=== PATIENT | female | born 1990 | race Caucasian/White ===

== ENCOUNTER 2022-01-27 17:34 | Inpatient (IN) | payer BC ==
[~2022-01-27] VITALS: Ht 160 cm; Wt 87.3 kg
--- NOTE | 2022-01-27 15:45 | NUR ---
PT AMBULATORY ONTO UNIT. CAME IN BECAUSE BLOOD PRESSURES WERE 160/90S AT HOME. CHANGED INTO CLEAN GOWN. FHR MONITOR/TOCO APPLIED. VITAL SIGNS WNL AT THIS TIME. PT DENIES ANY CONTRACTIONS, DECREASED MOVMEMENT, VAGINAL BLEEDING, OR LEAKING OF FLUID. PT IS ORIENTED TO ROOM AND TOLD PLAN OF CARE. PT VERBALIZES UNDERSTANDING.
[2022-01-27 18:00] VITALS: BP 144/97; PULSE 90; TEMP 98.2
[2022-01-27 18:20] LABS: HEMOGLOBIN 11.9 g/dl (12.5-16.0); MEAN CELL VOLUME 85 fl (80.0-100.0); MEAN CORPUSCULAR HEMOGLOBIN 28 pg (27-31); MEAN CORPUSCULAR HGB CONC 33 g/dl (33.0-37.0); MEAN PLATELET VOLUME 11.4 fl (7.4-10.4); PLATELET COUNT 251 K/mm3 (130-400); RED BLOOD COUNT 4.24 M/mm3 (4.10-5.30); REDCELL DISTRIBUTION WIDTH-CV 13.4 % (11.5-14.5)
--- NOTE | 2022-01-27 18:25 | NUR ---
1825- THIS RN TO BEDSIDE TO INTRODUCE FOR SHIFT CHANGE. DISCUSSED PLAN OF CARE AND PATIENT VERBALIZED UNDERSTANDING. PER DOCTORS ORDERS WOULD LIKE TO GET SOME BLOOD PRESSURES IN DIFFERENT POSITIONS. HELPED PATIENT TO LEFT LATERAL POSITION AND CHANGED BP CUFF TO RIGHT ARM. NO SYMPTOMS WITH POSITION CHANGE AT THIS TIME. AND NO QUESTIONS. CALL LIGHT WITHIN REACH.
[2022-01-27 18:30] VITALS: BP 129/79; PULSE 85
[2022-01-27 18:36] LABS: CALCIUM 8.6 mg/dL (8.4-10.2); CREATININE, serum 0.65 mg/dL (0.57-1.11)
[2022-01-27 18:45] VITALS: BP 125/82; PULSE 78
== END 2022-01-27 18:50 | disposition home or self-care (01) | DRG 833 ==
LOC: LDR 17:34
PROVIDERS: Obstetrics & Gynecology; ADMIT Obstetrics & Gynecology
DX: O14.90 Unspecified pre-eclampsia, unspecified trimester (principal)

== ENCOUNTER 2022-02-02 07:22 | Inpatient (IN) | payer BC ==
[~2022-02-02] VITALS: Ht 160 cm; Wt 88.1 kg
[2022-02-03] VITALS (34 sets, daily range): BP systolic 120–167; BP diastolic 66–108; PULSE 60–96; TEMP 7
[2022-02-03 06:48] LABS: BASO % 0.1 % (0.0-2.0); EOS % 0.1 % (0.0-4.0); GRAN # 6.1 K/mm3 (1.4-6.5); GRAN % 74.5 % (42.2-75.2); HEMOGLOBIN 11.4 g/dl (12.5-16.0); LYMPH # 1.3 K/mm3 (1.2-3.4); LYMPH % 15.9 % (20.0-51.0); MEAN CELL VOLUME 83 fl (80.0-100.0); MEAN CORPUSCULAR HEMOGLOBIN 28 pg (27-31); MEAN CORPUSCULAR HGB CONC 34 g/dl (33.0-37.0); MEAN PLATELET VOLUME 11.5 fl (7.4-10.4); MONO # 0.7 K/mm3 (0.1-0.6); MONO % 8.7 % (1.7-9.3); PLATELET COUNT 248 K/mm3 (130-400); RED BLOOD COUNT 4.05 M/mm3 (4.10-5.30); REDCELL DISTRIBUTION WIDTH-CV 13.4 % (11.5-14.5)
[2022-02-03 06:51] LABS: HEMATOCRIT 33.6 % (37.0-47.0)
[2022-02-03] MEDS ORDERED: PRENATAL TABLET PO (07:02)
[2022-02-04 01:05] VITALS: BP 154/83; PULSE 64; TEMP 98.3
[2022-02-04 04:15] VITALS: BP 134/88; PULSE 71
[2022-02-04 08:15] VITALS: BP 140/94; PULSE 76; TEMP 97.6
[2022-02-04] MEDS ORDERED: MOTRIN 800800 MG/TAB PO (08:27)
== END 2022-02-04 13:25 | disposition home or self-care (01) | DRG 807 ==
LOC: OB 02-03 06:01 → LDR 02-03 06:01 → OB 02-03 14:00
PROVIDERS: ADMIT Obstetrics & Gynecology
PROC: 10D07Z6 Extraction of Products of Conception, Vacuum, Via Natural or Artificial Opening (ICD-10-PCS; principal; 2022-02-03)
PROC: 10907ZC Drainage of Amniotic Fluid, Therapeutic from Products of Conception, Via Natural or Artificial Opening (ICD-10-PCS; 2022-02-03)
PROC: 3E033VJ Introduction of Other Hormone into Peripheral Vein, Percutaneous Approach (ICD-10-PCS; 2022-02-03)
DX: O13.4 Gestational [pregnancy-induced] hypertension without significant proteinuria, complicating childbirth (principal); Z37.0 Single live birth; O76 Abnormality in fetal heart rate and rhythm complicating labor and delivery; O69.2XX0 Labor and delivery complicated by other cord entanglement, with compression, not applicable or unspecified; Z3A.38 38 weeks gestation of pregnancy
CPT/HCPCS: J2590; J2795; J7120

== ENCOUNTER 2022-02-09 08:32 | Outpatient (CLI) | payer BC ==
[~2022-02-09 08:32] MED LIST: MOTRIN 800800 MG/TAB PO; PRENATAL TABLET PO
--- NOTE | 2022-02-09 10:45 | NUR ---
[id number] AND SPOUSE HERE WITH EVANGELISTA FOR EVAL AND PRE/POST FEED TRANSFER WEIGHT WITH A CONCERN OF JAUNDICE WELL. ALCONE WEIGHED 6LB 11OZ = 3020G AND BABE NOT JAUNDICE IN APPEARANCE. BOTH PARENTS VERBALIZED THAT THEY THOUGHT HE "LOOKED ALOT BETTER" THEN HE HAD. PATIENT REPORTS GOOD WET AND STOOL DIAPERS. PATIENT STATES THAT ALCONE TYPICALLY NURSES ON BOTH SIDES AND THAT BABE LAST NURSED AROUND 0500. BABE ALERT AND ROOTING. BABE PLACED TO BREAST AND INITIALLY STRUGGLED TO LATCH, THIS RN HELPED ACHIEVE LATCH PATIENT WAS ALSO ENGORGED. PATIENT REPORTS THAT BABE TYPICALLY "PLAYS AROUND FOR A LITTLE BIT AND THEN LATCHES." ONCE LATCHED A "CLICKING" SOUND WAS HEARD WITH EACH SUCK, PATIENT EDUCATED HOW TO DISCONTINUE LATCH AND RE-LATCH BABE. IT WAS NOTED THAT EVANGELISTA DID NOT HAVE BOTH NIPPLE AND PART OF AEROLA IN HIS MOUTH AND HIS BOTTOM LIP WAS TURNED UNDER. THIS RN EDUCATED MOM ON HOW TO ASSIST BABE WITH AND GRAB MORE TISSUE. LATCH ACHIEVED WITHOUT DIFFICULTY, BABE HAD WIDE MOUTH, BOTH LIPS FLANGED, PART OF AEROLA ALSO IN BABE'S MOUTH, SWALLOWING HEARD. PATIENT ALSO EDUCATED ON HOW TO ASSIST BABE WHEN HE TURNS HIS BOTTOM LIP IN BY GENTLY TUGGING ON CHIN WHILE LATCHED. PATIENT DEMONSTRATED AND VERBALIZED UNDERSTANDING. CALL LIGHT PLACED WITHIN REACH SO THAT THIS RN COULD DO A POST-FEED WEIGHT BETWEEN BREASTS AND IF ANY HELP IS NEEDED. 0925PATIENT CALLED THIS RN TO ROOM FOR A POST-FEED WEIGHT, PATIENT DENIES THAT BABE "CLICKED" ANYMORE AND BOTTOM LIP REMAINED OUT. EVANGELISTA NURSED FOR APPROXIMATELY 30MIN. POST-FEED WEIGHT ON RIGHT SIDE WAS 3100G=6LB 13.3OZ. TRANSFER AMOUNT OF 80G=80ML=2 2/3OZ. ATTEMPTED TO LATCH ON LEFT BREAST FOR APPROXIMATELY 10MIN, BABE NOT INTERESTED, NO FEEDING CUES NOTED, BABE RELAXED AND APPEARED SLEEPY. DURING ATTEMPT ON THE LEFT SIDE, BABKathy HAD A LARGE YELLOW, SEEDY STOOL. QUESTIONS ANSWERED IN REGARDS TO STORAGE OF BREASTMILK AND WHERE TO FIND THIS INFORMATION. IT WAS ALSO DISCUSSED WITH PATIENT ABOUT HAVING ELVIN FRIED, RN, IBCLC CONTACT HER TO TOUCH BASE VIA PHONE AND SCHEDULE ANOTHER FOLLOW-UP IF NEEDED. PATIENT VERBALIZED THAT SHE WAS COMPLETELY FINE WITH THIS AND WOULD LOVE TO ALSO SPEAK WITH ELVIN. PATIENT VERY THANKFUL FOR HELP PROVIDED. 0933THIS RN SPEAKING WITH DR GALINDO AGUERO'S NURSE AT [facility], INFORMATION GIVEN ON HAPPENINGS DURING VISIT. NO CONCERNS FROM THIS RN. ALSO NOTIFIED THAT ELVIN FRIED RN WILL BE NOTIFIED OF VISIT WELL AND WILL FOLLOW-UP. 0940ALL PERSONAL BELONGINGS GATHERED FROM ROOM. PATIENT AND BABE LEFT IN NO APPARENT DISTRESS. [id number] FRIED RN, IBCLC NOTIFIED OF OUTPATIENT CONSULT WITH PATIENT AND THE NATURE OF THE VISIT. ELVIN STATES THAT SHE WILL TOUCH BASE WITH PATIENT.
== END 2022-02-09 09:25 | disposition home or self-care (01) ==
LOC: LAC 08:32
DX: Z39.1 Encounter for care and examination of lactating mother (principal)